=== PATIENT | female | born 1995 | race African-American/Black ===

== ENCOUNTER 2017-05-27 19:48 | Emergency (ER) | payer OTHER ==
[~2017-05-27] VITALS: Ht 154.9 cm; Wt 106.6 kg
[2017-05-27 23:33] VITALS: BP 103/51
== END 2017-05-27 23:50 | disposition home or self-care (01) ==
LOC: ED 19:48
DX: L05.91 Pilonidal cyst without abscess (principal)
CPT/HCPCS: J2001; J3010

== ENCOUNTER 2017-05-28 03:19 | Emergency (ER) | payer OTHER ==
[2017-05-28 05:14] VITALS: BP 119/59
== END 2017-05-28 05:14 | disposition home or self-care (01) ==
LOC: ED 03:19
DX: L05.01 Pilonidal cyst with abscess (principal); G89.18 Other acute postprocedural pain
CPT/HCPCS: J2270; Q0162